=== PATIENT | female | born 1955 | race African-American/Black ===

== ENCOUNTER 2017-12-17 12:57 | Emergency (ER) | payer BC ==
[~2017-12-17] VITALS: Ht 162.6 cm; Wt 96.2 kg
[~2017-12-17 12:57] MED LIST: ALBUTEROL SULF8.5 GM INH; ALBUTEROL2.5 MG/3 M HHN; CEPHALEXIN500 MG ORAL; CIPRO500 MG PO; DEPAKOTE ER500 MG ORAL; LIPITOR20 MG ORAL; NAPROSYN250 M1 ORAL; NICODERM CQ1 EAC1 TD; NORCO 5-325 TA1 EACH ORAL; PREDNISONE20 MG ORAL; PYRIDIUM100 MG ORAL; SEROQUEL100 MG ORAL; SYNTHROID25 MCG ORAL; TRAZODONE HCL100 MG ORAL; VICODIN 5-5001 EACH ORAL; ZITHROMAX250 MG ORAL; ZOLOFT100 MG ORAL; nebulizer
[2017-12-17 13:11] VITALS: BP 109/77
[2017-12-17] MEDS ORDERED: Ipratropium 0.02% Inh Soln 2.5ml UD HHN ONE (13:45)
[2017-12-17] MEDS ORDERED: Albuterol ud Inhalation HHN ONE (13:45)
[2017-12-17] MEDS ORDERED: PROMETHAZINE-D118 ML ORAL (14:52)
[2017-12-17] MEDS ORDERED: PREDNISONE20 MG ORAL (14:52)
[2017-12-17 15:00] VITALS: BP 112/72
--- NOTE | 2017-12-17 15:25 | Emergency Room Report ---
History of Present Illness General Chief Complaint: Upper Respiratory Illness Source: Patient Present Illness HPI The patient is a 62-year-old female With a history of asthma presenting for cough for the past 2 weeks. She denies any known sick contacts or recent travel. She admits to pain described as a 6/10 dull ache to the mid chest and occurs with coughing only. She has tried Mucinex at home which has not been helping. She uses albuterol and Advair daily for asthma which helps. She admits to subjective fever. She denies other symptoms including shortness of breath, dizziness, hemoptysis Allergies: Coded Allergies: No Known Allergies (Verified Allergy, Unknown, 08/25/10) Patient History Past Medical History: see triage record Pertinent Family History: none Reviewed Nursing Documentation: PMH: Agreed, PSxH: Agreed Nursing Documentation-PMH Past Medical History: No History, Except For Hx Asthma: Yes Hx COPD: No - HYPERCHOLESTEROLEMIA Review of Systems All Other Systems: negative except mentioned in HPI Physical Exam Vital Signs Date Time Temp Pulse Resp B/P (MAP) Pulse Ox O2 Delivery O2 Flow Rate FiO2 12/17/17 13:03 99.2 88 18 109/77 94 Room Air 99.1 Sp02 EP Interpretation: reviewed, normal General Appearance: no apparent distress, alert, GCS 15, non-toxic Head: normocephalic, atraumatic Eyes: bilateral eye normal inspection, bilateral eye PERRL ENT: hearing grossly normal, normal pharynx, no angioedema, normal voice, uvula midline Neck: full range of motion, supple/symm/no masses Respiratory: no accessory muscle use, speaking full sentences, wheezing - bilat Cardiovascular #1: regular rate, rhythm, no edema Musculoskeletal: back normal, gait/station normal, normal range of motion, non- tender Neurologic: alert, oriented x3, responsive, motor strength/tone normal, sensory intact, speech normal Psychiatric: judgement/insight normal, memory normal, mood/affect normal, no suicidal/homicidal ideation Skin: normal color, no rash, warm/dry, well hydrated Lymphatic: no adenopathy Medical Decision Making PA Attestation Dr. Rodríguez is my supervising physician. Patient management was discussed with my supervising physician Diagnostic Impression: Primary Impression: Acute bronchitis Qualified Codes: J20.9 - Acute bronchitis, unspecified ER Course The patient is a 62-year-old female With a history of asthma presenting for cough for the past 2 weeks. Differential diagnosis include but not limited to pharyngitis, sinusitis, AOM, bronchitis, PNA PE: afebrile. No tachypnea. No apparent distress. No TTP over maxillary or frontal sinuses. Lungs: diffuse wheezing. No accessory muscle use. No resp distress Heart: RRR, no abnormal heart sounds Ears: external auditory canal clear. Non erythematous. Bilat TM intact. Cone of light present bilat. No bulging of TM. No serous fluid seen. no nasal D/C Nor cervical lymphad No tonsillar exudate. Uvula midline.Oropharynx non erythematous CXR unremarkable. Breathing treatment administered and pt feels better. Lung sounds improved The patient will be discharged home with a prescription for prednisone, cough medication. ER precautions given Last Vital Signs Date Time Temp Pulse Resp B/P (MAP) Pulse Ox O2 Delivery O2 Flow Rate FiO2 12/17/17 15:00 97.3 90 16 112/72 95 Room Air Status: improved Disposition: HOME, SELF-CARE Condition: Improved Scripts Prednisone* (PREDNISONE*) 20 Mg Tablet 40 MG ORAL DAILY, #8 TAB Prov: MICHAEL SANDOVAL.AMartha 12/17/17 D-Methorphan Hb/Prometh Hcl* (PROMETHAZINE-DM SYRUP*) 118 Ml Syrup 5 ML ORAL Q6H Y for For Cough, #118 ML 0 Refills Prov: MICHAEL SANDOVAL.AMartha 12/17/17 Referrals: NOT CHOSEN [facility]/MD,REFERRING (PCP) Patient Instructions: Acute Bronchitis Additional Instructions: I discussed my findings with the patient. All questions and concerns have been answered. Treatment and medication compliance have been addressed. I advised the patient that they need to follow up with PMD in 3-5 days. Return to ED if symptoms worsen, new symptoms arise, or if needed for any reason. Patient verbalized understanding of discharge instructions. MICHAEL SANDOVAL Dec 17, 2017 15:25
--- NOTE | 2017-12-18 09:42 | Diagnostic Imaging Report ---
Indication: Reason For Exam: COUGH Technique: One view of the chest Comparison: 07/06/2013 Findings: Lungs and pleural spaces are clear. Heart size is normal . No significant change Impression: No acute process
== END 2017-12-17 15:03 | disposition home or self-care (01) ==
LOC: EMR 13:34
DX: J20.9 Acute bronchitis, unspecified (principal); J45.909 Unspecified asthma, uncomplicated; E78.00 Pure hypercholesterolemia, unspecified
CPT/HCPCS: 71045; 94640; 94664; 99284

== ENCOUNTER 2019-06-18 15:03 | Emergency (ER) | payer BC ==
[~2019-06-18] VITALS: Ht 162.6 cm; Wt 99.3 kg
[~2019-06-18 15:03] MED LIST changes: +PROMETHAZINE-D118 ML ORAL
[2019-06-18] MEDS ORDERED: SPIRIVA18 MCG INH (15:15)
[2019-06-18 15:25] VITALS: BP 118/81
--- NOTE | 2019-06-18 15:44 | Emergency Room Report ---
History of Present Illness General Chief Complaint: Edema Source: Patient Present Illness HPI Disclaimer: Please note that this report is being documented using DRAGON technology. This can lead to erroneous entry secondary to incorrect interpretation by the dictating instrument. HPI: 63-year-old female with a history of bipolar disorder, asthma, COPD presents for evaluation of lower extremity edema. Symptoms began 3 days ago. Notes swelling over the feet without pain. No recent change in activity. No new medications. She was attending several barbecues over the holiday weekend and states she probably ate a lot of salt. No prior history of swelling. Does not take exogenous estrogen, no recent immobilization, no recent surgeries, no prior history of DVT. No long distance travel. She also notes cough and mild shortness of breath however she attributes this to her asthma and states it is not out of her baseline. She has been using her inhalers. Denies fevers or chills. Denies abdominal pain, vomiting, diarrhea. PMH: Asthma, COPD, bipolar disorder PSH: Partial hysterectomy, right rotator cuff repair Allergies: Denies Social Hx: Continues to smoke. Denies alcohol or drug abuse Allergies: Coded Allergies: No Known Allergies (Verified Allergy, Unknown, 08/25/10) Nursing Documentation-PMH Past Medical History: No History, Except For Hx Asthma: Yes Hx COPD: No - HYPERCHOLESTEROLEMIA Review of Systems All Other Systems: negative except mentioned in HPI Physical Exam Vital Signs Date Time Temp Pulse Resp B/P (MAP) Pulse Ox O2 Delivery O2 Flow Rate FiO2 06/18/19 15:10 97.9 98 22 118/81 (93) 91 Room Air General: Awake and alert, no acute distress HEENT: NC/AT. EOMI. Cardiovascular: RRR. S1 and S2 normal. No murmur appreciated Resp: Normal work of breathing. No cough, wheezing or crackles appreciated Abdomen: Abdomen is soft, nondistended, obese abdomen. Nontender Skin: Intact. No abrasions, laceration or rash over the exposed skin MSK: Normal tone and bulk. Moving all extremities. No obvious deformity. Calves are symmetrical in size. Nontender. No overlying skin changes. Negative Homans sign. 2+ PT and DP pulses in lower extremities. There are 2+ pitting edema over the dorsum of the feet not extending past the ankles. Feet are symmetrical in size Neuro: Awake and alert. Mentating appropriately. Medical Decision Making Diagnostic Impression: Primary Impression: Lower extremity edema ER Course 63-year-old female presents for evaluation of feet swelling. Differential includes but is not limited to kidney injury, excess salt intake, DVT, acute CHF. No evidence of cellulitis. Clinically, very low suspicion for DVT however will obtain a d-dimer. We will also perform a broad metabolic and cardiac work-up. No respiratory distress. States her breathing symptoms are well controlled with her inhalers. Laboratory Tests Test 06/18/19 16:00 White Blood Count 9.8 K/UL (4.8-10.8) Red Blood Count 4.52 M/UL (4.20-5.40) Hemoglobin 13.7 G/DL (12.0-16.0) Hematocrit 40.6 % (37.0-47.0) Mean Corpuscular Volume 90 FL (80-99) Mean Corpuscular Hemoglobin 30.3 PG (27.0-31.0) Mean Corpuscular Hemoglobin Concent 33.7 G/DL (32.0-36.0) Red Cell Distribution Width 12.2 % (11.6-14.8) Platelet Count 181 K/UL (150-450) Mean Platelet Volume 7.2 FL (6.5-10.1) Neutrophils (%) (Auto) 47.5 % (45.0-75.0) Lymphocytes (%) (Auto) 39.2 % (20.0-45.0) Monocytes (%) (Auto) 10.0 % (1.0-10.0) Eosinophils (%) (Auto) 1.4 % (0.0-3.0) Basophils (%) (Auto) 1.9 % (0.0-2.0) D-Dimer 0.19 mg/L FEU (0.00-0.49) Sodium Level 144 MMOL/L (136-145) Potassium Level 4.2 MMOL/L (3.5-5.1) Chloride Level 109 MMOL/L (98-107) H Carbon Dioxide Level 26 MMOL/L (21-32) Anion Gap 9 mmol/L (5-15) Blood Urea Nitrogen 13 mg/dL (7-18) Creatinine 0.8 MG/DL (0.55-1.30) Estimate Glomerular Filtration Rate > 60 mL/min (>60) Glucose Level 100 MG/DL (74-106) Calcium Level 9.3 MG/DL (8.5-10.1) Total Bilirubin 0.2 MG/DL (0.2-1.0) Aspartate Amino Transferase (AST) 18 U/L (15-37) Alanine Aminotransferase (ALT) 20 U/L (12-78) Alkaline Phosphatase 80 U/L (46-116) Total Creatine Kinase 91 U/L (26-308) Creatine Kinase MB 0.8 NG/ML (0.0-3.6) Creatine Kinase MB Relative Index 0.8 Troponin I 0.002 ng/mL (0.000-0.056) Pro-B-Type Natriuretic Peptide 43 pg/mL (0-125) Total Protein 6.6 G/DL (6.4-8.2) Albumin 3.3 G/DL (3.4-5.0) L Globulin 3.3 g/dL Albumin/Globulin Ratio 1.0 (1.0-2.7) EKG Diagnostic Results EKG Time: 15:50 Rate: normal Rhythm: NSR ST Segments: no acute changes Other Impression Normal intervals, normal axis. Sinus rhythm. No acute ischemic changes. Rhythm Strip Diag. Results Rhythm Strip Time: 15:50 EP Interpretation: yes Rate: 80s Rhythm: NSR, no PVC's, no ectopy Chest X-Ray Diagnostic Results Chest X-Ray Diagnostic Results : Chest X-Ray Ordered: Yes # of Views/Limited/Complete: 1 View Indication: Shortness of Breath EP Interpretation: Yes Interpretation: no consolidation, no effusion, no pneumothorax Impression: No acute disease Electronically Signed by: Electronically signed by Dr. Bebo Blanca Reevaluation Time: 17:20 Last Vital Signs Date Time Temp Pulse Resp B/P (MAP) Pulse Ox O2 Delivery O2 Flow Rate FiO2 06/18/19 15:25 98 22 Room Air 06/18/19 15:25 97.9 118/81 96 Reevaluation Impression Lab work including troponin, d-dimer, peptide unremarkable. Chest x-ray shows clear lungs without significant signs of fluid overload, consolidation, pneumothorax or other pathology. Lab work otherwise within normal limits. No evidence of kidney injury. The patient can be discharged after a dose of Lasix and follow-up with her PMD. We discussed reasons to return to the emergency department. Understands and agrees with this treatment plan. Disposition: HOME, SELF-CARE Condition: Stable Bebo Blanca MD Jun 18, 2019 15:44
[2019-06-18 16:15] LABS: BASOPHILS % (AUTO) 1.9 % (0.0-2.0); EOSINOPHILS % (AUTO) 1.4 % (0.0-3.0); HEMATOCRIT 40.6 % (37.0-47.0); HEMOGLOBIN 13.7 G/DL (12.0-16.0); LYMPHOCYTES % (AUTO) 39.2 % (20.0-45.0); MEAN CORPUSCULAR VOLUME 90 FL (80-99); NEUTROPHILS % (AUTO) 47.5 % (45.0-75.0); PLATELET COUNT 181 K/UL (150-450); RED BLOOD COUNT 4.52 M/UL (4.20-5.40); RED CELL DISTRIBUTION WIDTH 12.2 % (11.6-14.8); WHITE BLOOD COUNT 9.8 K/UL (4.8-10.8)
[2019-06-18 16:22] LABS: ANION GAP 9 mmol/L (5-15); BLOOD UREA NITROGEN 13 mg/dL (7-18); CALCIUM 9.3 MG/DL (8.5-10.1); CARBON DIOXIDE 26 MMOL/L (21-32); CHLORIDE 109 MMOL/L (98-107); CREATININE 0.8 MG/DL (0.55-1.30); POTASSIUM 4.2 MMOL/L (3.5-5.1); SODIUM 144 MMOL/L (136-145)
--- NOTE | 2019-06-18 16:30 | Diagnostic Imaging Report ---
Indication: Shortness of breath Technique: One view of the chest Comparison: 12/17/2017 Findings: Lungs and pleural spaces are clear. Heart size is normal. No significant interim change Impression: No acute process
[2019-06-18 16:36] LABS: ALANINE AMINOTRANSFERASE 20 U/L (12-78); ALBUMIN 3.3 G/DL (3.4-5.0); ALKALINE PHOSPHATASE 80 U/L (46-116); ASPARTATE AMINO TRANSFERASE 18 U/L (15-37); BILIRUBIN,TOTAL 0.2 MG/DL (0.2-1.0); CKMB 0.8 NG/ML (0.0-3.6); CREATINE KINASE 91 U/L (26-308)
[2019-06-18 18:00] VITALS: BP 126/74
--- NOTE | 2019-06-20 15:15 | Cardiology Report ---
APPROVED REPORT EKG Measurement Heart [id number] Normal sinus rhythm Septal infarct, age undetermined Abnormal ECG
== END 2019-06-18 18:00 | disposition home or self-care (01) ==
LOC: EMR 15:52
DX: R60.0 Localized edema (principal); E78.00 Pure hypercholesterolemia, unspecified; J44.9 Chronic obstructive pulmonary disease, unspecified; F31.9 Bipolar disorder, unspecified; R06.02 Shortness of breath; Z90.710 Acquired absence of both cervix and uterus; F17.200 Nicotine dependence, unspecified, uncomplicated
CPT/HCPCS: 36415; 71045; 80053; 82550; 82553; 83880; 84484; 85025; 85379; 93005; 96374; 99284; J1940